=== PATIENT | male | born 1995 | race Caucasian/White ===

== ENCOUNTER 2023-07-25 18:17 | Emergency (ER) | payer OTHER ==
[2023-07-25] MEDS: Diphtheria,Pertussis(Acell),Tetanus Vaccine 0.5 ML Syringe IM ONE (18:34)
[2023-07-25] MEDS: Lidocaine 1% 30 ML SDV INJECT ONE (18:35)
[2023-07-25] MEDS: Cephalexin 500 MG Cap PO ONE (18:53)
[2023-07-25] MEDS: Take Home: Cephalexin 500 MG Cap, 6 Cap Pack PO ONE (18:53)
== END 2023-07-25 19:05 ==
LOC: VM.ED 18:17
DX: S60.453A Superficial foreign body of left middle finger, initial encounter (principal); Z91.048 Other nonmedicinal substance allergy status; Z23 Encounter for immunization; Z79.899 Other long term (current) drug therapy; W45.8XXA Other foreign body or object entering through skin, initial encounter
CPT/HCPCS: 90471; 90715; 99283; A9270; J3490